=== PATIENT | male | born 1940 | race Caucasian/White ===

== ENCOUNTER 2019-12-22 09:58 | Day surgery (SDC) | payer MEDICARE, SELFPAY ==
[2019-12-15 15:37] VITALS: BMI 25.1
--- NOTE | 2019-12-21 13:17 | HO.ANESPROP2 ---
Documented by User: Asmita Recinos 12/22/19 10:38 HPI - Anesthesia Eval Consult details Narrative: 79yo M for colonoscopy PMFSH Past Medical History Medical History Asthma Elevated cholesterol HTN (hypertension) Myelodysplastic syndrome Surgical History Surgical History History of bone marrow biopsy History of repair of rotator cuff Hx of appendectomy Hx of arthroscopy of left knee Hx of colonoscopy Social History Social History Smoking Status: Former smoker Smoked in Last 30 Days: No Smoking Quit Date: 50 yrs ago Use of substances other than those prescribed or required for medical reasons: No Have you been hit, kicked, punched, or otherwise hurt by someone within the past year? If so, by whom?: No Advance Directives: No Advance Directives Information Provided: No Advance Directives on File: No Recently lost weight without trying: Yes Meds Allergies Allergy/AdvReac Type Severity Reaction Status Date / Time Iodinated Contrast Media Allergy Mild Shortness Verified 12/22/19 10:23 [IV DYE, IODINE CONTAINING of Breath CONTRAST ] Home Medications Medication Instructions Recorded Confirmed Type acetaminophen 1,000 mg PO Q6H PRN 12/15/19 12/15/19 History albuterol sulfate [ProAir HFA] 1 puff INHALATION QID PRN 12/15/19 12/15/19 History amlodipine 2.5 mg PO DAILY 12/15/19 12/22/19 History budesonide-formoterol 2 puff INHALATION BID 12/15/19 12/15/19 History fluorometholone 1 drp OPHTHALMIC (EYE) Q6H 12/15/19 12/15/19 History pravastatin 10 mg PO DAILY 12/15/19 12/15/19 History triamterene-hydrochlorothiazid 1 cap PO DAILY 12/15/19 12/15/19 History Exam Exam Date and Time: December 21, 2019 1317 Height,Weight and Vital Signs: Height 5 ft 11 in Weight 81.647 kg Assessment and Plan Assessment Anesthesia Assessment: Chart Reviewed Documented by User: Jailyn Eugene 12/22/19 10:39 PMFSH Past Medical History Medical History Asthma Elevated cholesterol HTN (hypertension) Myelodysplastic syndrome Cognitive capacity: Alert and oriented Functional capacity: independent ambulation Family History Family history of problems with anesthesia: No Surgical History Surgical History History of bone marrow biopsy History of repair of rotator cuff Hx of appendectomy Hx of arthroscopy of left knee Hx of colonoscopy History of Problems with Anesthesia: No Social History Social History Smoking Status: Former smoker Smoked in Last 30 Days: No Smoking Quit Date: 50 yrs ago Use of substances other than those prescribed or required for medical reasons: No Have you been hit, kicked, punched, or otherwise hurt by someone within the past year? If so, by whom?: No Advance Directives: No Advance Directives Information Provided: No Advance Directives on File: No Recently lost weight without trying: Yes Travel History History of recent travel: No Meds Allergies Allergy/AdvReac Type Severity Reaction Status Date / Time Iodinated Contrast Media Allergy Mild Shortness Verified 12/22/19 10:23 [IV DYE, IODINE CONTAINING of Breath CONTRAST ] Home Medications Medication Instructions Recorded Confirmed Type acetaminophen 1,000 mg PO Q6H PRN 12/15/19 12/15/19 History albuterol sulfate [ProAir HFA] 1 puff INHALATION QID PRN 12/15/19 12/15/19 History amlodipine 2.5 mg PO DAILY 12/15/19 12/22/19 History budesonide-formoterol 2 puff INHALATION BID 12/15/19 12/15/19 History fluorometholone 1 drp OPHTHALMIC (EYE) Q6H 12/15/19 12/15/19 History pravastatin 10 mg PO DAILY 12/15/19 12/15/19 History triamterene-hydrochlorothiazid 1 cap PO DAILY 12/15/19 12/15/19 History Exam Height,Weight and Vital Signs: Vital Signs Temp Pulse Resp BP Pulse Ox 12/22/19 10:09 97.7 F 74 18 120/78 99 Airway Mallampati Class: I TM Dist: >3cm Neck ROM: Full Loose/Missing/Broken Teeth: No Heart: RRR Lungs: CTAB Assessment and Plan Assessment Anesthesia Assessment: Anesthesia Plan Discussed, Consent Obtained and Chart Reviewed Final Anesthetic Review NPO: Yes Intake Type: Clears (Sip of water with medication) and Solids Intake Timing: Greater than 8 hours ASA Class: III Final Preanesthetic Review: No Changes in Pt Med Stat, Meds & Allergies Reviewed, Consent Obtained/Reviewed, Med/Surg/Anes Hx Reviewed and Anes Risks/Benef Reviewed Patient Risk: Intermediate Procedure Risk: Low Anesthetic Plan Anesthetic Plan: MAC: Disposition: Standard PACU
[2019-12-22 10:09] VITALS: BP 120/78; PULSE 74; RESP 18; TEMP 36.5; O2SAT 99
[2019-12-22] MEDS: Lactated Ringers 1,000 ML 100 ML IVCONT (10:21)
--- NOTE | 2019-12-22 10:28 | MHC.SHP ---
Pre-Procedural Eval Section B Chief Complaint: SCREENING,CONSTIPATION Details of Present Illness: see H&P no changes Relevant Family History (Specify if Yes): No Relevant Social History: None Present Medications: see Short Stay Collaborative assessment Medical History: No relevant PMH (See H&P, no changes) History of Previous Operations: No relevant previous surgery Allergies: Allergies Allergy/AdvReac Type Severity Reaction Status Date / Time Iodinated Contrast Media Allergy Mild Shortness Verified 12/22/19 10:23 [IV DYE, IODINE CONTAINING of Breath CONTRAST ] Review of Systems Sugical H&P ROS: Negative: Constitution, Cardiovascular, Respiratory, Neurological, Psychiatric, Hem-Onc, Allergic/Immunologic, Gastrointestinal, Genitourinary, Musculoskeletal, Integumentary, Endocrine and Eyes/Ears/Nose/Throat Exam Surgical H&P Exam: Normal: HEENT, Normal: Heart, Normal: Lungs, Normal: Extremities, Normal: Abdomen, Normal: Skin and Normal: Neurological Plan Diagnosis/Plan: Unchanged Patient has been examined and remains a candidate for the planned procedure
--- NOTE | 2019-12-22 11:05 | PM.PROC ---
Brief Operative Note Date of procedure: 12/22/19 Pre-op diagnosis: constipation Post-op diagnosis: other (colon polyps) Procedure: colonoscopy Anesthesia: MAC Surgeon: Everette Davis Estimated blood loss (mL): 0 Pathology: other (multiple polyps) Condition: stable Disposition: PACU
[2019-12-22 11:06] VITALS: BP 89/58; PULSE 69; RESP 12; TEMP 36.3; O2SAT 95
[2019-12-22 11:22] VITALS: BP 98/65; PULSE 68; RESP 16; O2SAT 99
[2019-12-22 11:31] VITALS: BP 108/64; PULSE 64; RESP 16; TEMP 36.3; O2SAT 99
--- NOTE | 2019-12-22 12:13 | OP_ITS ---
SURGEON: Everette Davis MD INDICATIONS: Constipation and prior history of colon polyps. PREOPERATIVE DIAGNOSIS: POSTOPERATIVE DIAGNOSIS: PROCEDURE PERFORMED: Colonoscopy to the terminal ileum with biopsy and snare polypectomy. ESTIMATED BLOOD LOSS: COMPLICATIONS: ANESTHESIA: ASSISTANTS: SPECIMENS: MEDICATIONS: Monitored anesthesia care. DESCRIPTION OF PROCEDURE: History and physical performed. The risks and benefits of the procedure were explained to the patient. Informed consent was obtained. The patient was placed in the left lateral decubitus position. A digital rectal exam was performed. The prostate was normal and only slightly enlarged with no abnormalities to palpation. The Olympus pediatric video colonoscope was introduced into the rectum and advanced to the cecum without difficulty. The cecum was identified by transillumination, palpation, and identification of ileocecal valve. Examination was performed and the scope was removed. He tolerated the procedure well and was taken to recovery area in stable condition. FINDINGS: The terminal ileum was normal. The visualized colonic mucosa was normal. The quality of the prep was good. There was moderate diverticulosis involving the sigmoid. Multiple colonic polyps were present. At 80 cm, was a less than 5 mm polyp, which was removed with biopsy forceps. A 6 to 7 mm polyp was removed with a snare. At 70 cm, was a less than 5 mm polyp, which was also removed with biopsy forceps. In the sigmoid at about 20 cm, was a polyp measuring 6 mm, which was removed with a snare and recovered via suction. Retroflexed examination showed small internal hemorrhoids. IMPRESSION: Colon polyps. RECOMMENDATION: Follow up the biopsy results. MD VINCE Lowry/MODL / [id number]
--- NOTE | 2019-12-22 12:17 | HO.POSTANES ---
Post Anesthesia Evaluation Post Anesthesia Evaluation Vital Signs: Vital Signs Temp Pulse Resp BP Pulse Ox 12/22/19 11:31 97.4 F 64 16 108/64 99 12/22/19 11:22 68 16 98/65 99 12/22/19 11:06 97.4 F 69 12 89/58 L 95 12/22/19 10:09 97.7 F 74 18 120/78 99 Anesthesia: Monitored Mental Status: Awake Pain Control: Satisfactory Nausea/Vomiting: None Hydration: Adequate Anesthesia-Related Issues: No Anes. Related Issues
--- NOTE | 2019-12-22 12:20 | PM.OP ---
Brief Operative Note Date of procedure: 12/22/19 Pre-op diagnosis: screening Post-op diagnosis: other (colon polyp) Procedure: colonosocpy Anesthesia: MAC Surgeon: Everette Davis Estimated blood loss (mL): 0 Pathology: other (polyp 80 cm) Condition: stable Disposition: PACU
== END 2019-12-22 12:00 | disposition home or self-care (01) ==
PROVIDERS: PCP Family Medicine; Visit Provider Internal Medicine Gastroenterology
PROC: 0DJD8ZZ Inspection of Lower Intestinal Tract, Via Natural or Artificial Opening Endoscopic (ICD-10-PCS; CPT 45378; principal; 2019-12-22 10:30)
DX: Z12.11 Encounter for screening for malignant neoplasm of colon (principal); Z86.010 Personal history of colon polyps; Z80.0 Family history of malignant neoplasm of digestive organs; D12.4 Benign neoplasm of descending colon; D12.5 Benign neoplasm of sigmoid colon; K59.00 Constipation, unspecified; K57.30 Diverticulosis of large intestine without perforation or abscess without bleeding; K64.8 Other hemorrhoids; I10 Essential (primary) hypertension; D46.9 Myelodysplastic syndrome, unspecified; E78.00 Pure hypercholesterolemia, unspecified; J45.909 Unspecified asthma, uncomplicated; Z79.51 Long term (current) use of inhaled steroids; Z79.899 Other long term (current) drug therapy; Z91.041 Radiographic dye allergy status
CPT/HCPCS: 45385; 45380; 88305